=== PATIENT | male | born 1960 | race Caucasian/White ===

== ENCOUNTER → 2021-04-16 | Outpatient (REF) ==
--- NOTE | 2021-04-16 13:59 | REPPI ---
INDICATION: SHOULDER, BACK PAIN. COMPARISON: None. TECHNIQUE: Three views of the left shoulder were performed. FINDINGS: The acromioclavicular and glenohumeral relationships are within normal limits. There is no acute fracture or destructive osseous lesion. There is minimal humeral head marginal osteophyte formation seen inferiorly IMPRESSION: Slight degenerative change. <Electronically signed by Earnest Multani > 04/16/21 [id number]
--- NOTE | 2021-04-16 14:01 | REPPI ---
INDICATION: SHOULDER, BACK PAIN. COMPARISON: None. TECHNIQUE: Frontal, lateral, and lateral spot views are of the lumbar spine are provided. FINDINGS: The patient is status post lumbar laminectomy at L4 and L5. Transpedicle screws are in place bilaterally at L3, L4, L5, and S1. Interconnecting dorsal stabilization rods are seen bilaterally. A dual lead paraspinal neurostimulator is noted in place in the dorsal soft tissues at L3 and L4. There are metallic screws and disc fusion device is in place ventrally at the L4-5 and L5-S1 discs. Bridging osteophyte formation is seen ventrally at L3-4. Bone graft fusion density is seen the posterior elements at these levels. There is also degenerative disc disease at L2-3 and L1-2 with sclerosis and anterior discogenic spurring. Pedicles and posterior elements are otherwise intact. Sacrum and SI joints are intact. There is an anastomotic suture line in the left pelvis. Psoas margins are symmetric. The bowel gas pattern is unremarkable. IMPRESSION: Extensive posterior element and ventral lumbosacral spine fusion hardware as described above in detail above. Degenerative disc disease above the fused levels at L2-3 and L1-2. No acute bony abnormality. <Electronically signed by Good [facility] > 04/16/21 [id number]
== END ==
LOC: M PLAIMG 13:02
PROVIDERS: ATTEND Internal Medicine
DX: Z00.00 Encounter for general adult medical examination without abnormal findings (principal)

== ENCOUNTER → 2022-04-26 | Outpatient (CLI) ==
[~2022-04-26] MED LIST: ADME100I2; AMIO0.1T PO; CARV25TA PO; CLOP75TA2 PO; ELIQ5TAB PO; ENTR1TAB4 PO; GLIM4TAB5 PO; HYDR12CA; METF10004 PO; NOVO1INJ18 SQ; PANT40TA29 PO; POTA1TAB23; ROSU10TA6 PO; SPIR-10; TORS20TA2 PO; TRUL0.5I
== END ==
LOC: M LABSMTC 09:36
PROVIDERS: ATTEND Anesthesiology
DX: Z01.812 Encounter for preprocedural laboratory examination (principal)

== ENCOUNTER 2022-04-30 06:56 | Day surgery (SDC) | payer OTHER ==
[~2022-04-30] VITALS: Ht 185.4 cm; Wt 136.5 kg
[~2022-04-30 06:56] MED LIST changes: +MAXITROL OPHTH SUSP 5 ML As Ordered ONE; +TETRACAINE 0.5% OPHTH SOLN 4ML OS SCH
[2022-04-30] MEDS ORDERED: LR 1,000 ML IV SCH (07:00)
[2022-04-30] MEDS ORDERED: MIDAZOLAM INJ 2MG/2ML VIAL (J2250 PER 1MG) As Ordered ONE (07:16)
[2022-04-30] MEDS ORDERED: LIDOCAINE 1% SDV 5ML VIAL As Ordered ONE (07:20)
[2022-04-30] MEDS: FLURBIPROFEN 0.03% OPHTH SOLN 2.5 ML OS SCH ×3 (07:22→07:37)
[2022-04-30] MEDS: PHENYLEPHRINE 2.5% OPHTH SOL 2ML OS SCH ×3 (07:22→07:37)
[2022-04-30] MEDS: CYCLOPENTOLATE 1% OPHTH SOLN 2 ML BTL OS SCH ×3 (07:23→07:37)
[2022-04-30 09:35] VITALS: BP 161/76
== END 2022-04-30 10:10 | disposition home or self-care (01) ==
LOC: M SDC 06:56
PROVIDERS: ATTEND Ophthalmology
DX: H25.12 Age-related nuclear cataract, left eye (principal); I48.91 Unspecified atrial fibrillation; I11.9 Hypertensive heart disease without heart failure; E78.5 Hyperlipidemia, unspecified; M06.9 Rheumatoid arthritis, unspecified; I25.2 Old myocardial infarction; R06.02 Shortness of breath; M25.511 Pain in right shoulder; I73.9 Peripheral vascular disease, unspecified; E11.69 Type 2 diabetes mellitus with other specified complication; R80.9 Proteinuria, unspecified; E11.319 Type 2 diabetes mellitus with unspecified diabetic retinopathy without macular edema; E11.40 Type 2 diabetes mellitus with diabetic neuropathy, unspecified; Z87.891 Personal history of nicotine dependence; Z79.899 Other long term (current) drug therapy; Z79.84 Long term (current) use of oral hypoglycemic drugs; Z79.01 Long term (current) use of anticoagulants; Z79.02 Long term (current) use of antithrombotics/antiplatelets; Z79.4 Long term (current) use of insulin
CPT/HCPCS: 66984; J2250; V2632

== ENCOUNTER 2023-04-20 06:02 | Day surgery (SDC) | payer MEDICAID, MEDICARE ==
[~2023-04-20] VITALS: Ht 185.4 cm; Wt 136.1 kg
[~2023-04-20 06:02] MED LIST changes: -MAXITROL OPHTH SUSP 5 ML As Ordered ONE; +PROPARACAINE 0.5% OPHTH SOL 15ML OD ONE; -TETRACAINE 0.5% OPHTH SOLN 4ML OS SCH
[2023-04-20] MEDS ORDERED: LIDOCAINE 1% SDV 5ML VIAL As Ordered ONE (06:42)
[2023-04-20] MEDS ORDERED: CEFUROXIME 1MG/0.1ML INTRACAMERAL INJ As Ordered ONE (06:43)
[2023-04-20] MEDS ORDERED: BSS IRR 500ML/OMIDRIA 4ML IRR BAG (OR ONLY) As Ordered ONE (06:44)
[2023-04-20] MEDS: OFLOXACIN 0.3 % (OCUFLOX) OPTH SOL 5ML OD SCH ×3 (06:45→06:56)
[2023-04-20] MEDS: PHENYLEPHRINE 2.5% OPHTH SOL 2ML OD SCH ×3 (06:45→06:56)
[2023-04-20] MEDS: CYCLOPENTOLATE 1% OPHTH SOLN 2ML BTL OD SCH ×3 (06:45→06:56)
[2023-04-20] MEDS: TROPICAMIDE 1% OPHTH SOLN 15ML OD SCH ×3 (06:45→06:56)
[2023-04-20] MEDS ORDERED: MIDAZOLAM INJ 2MG/2ML VIAL As Ordered ONE (07:05)
[2023-04-20] MEDS ORDERED: fentaNYL 100 MCG/2 ML INJECTION As Ordered ONE (07:05)
[2023-04-20 08:25] VITALS: BP 131/74; TEMP 97; O2SAT 99
== END 2023-04-20 08:27 | disposition home or self-care (01) ==
LOC: M SDC 06:02
PROVIDERS: ATTEND Ophthalmology
DX: H25.11 Age-related nuclear cataract, right eye (principal); I10 Essential (primary) hypertension; I48.91 Unspecified atrial fibrillation; E11.9 Type 2 diabetes mellitus without complications; E78.5 Hyperlipidemia, unspecified; K21.9 Gastro-esophageal reflux disease without esophagitis; R60.9 Edema, unspecified; G47.33 Obstructive sleep apnea (adult) (pediatric); Z98.61 Coronary angioplasty status; Z79.01 Long term (current) use of anticoagulants; Z79.4 Long term (current) use of insulin; Z79.84 Long term (current) use of oral hypoglycemic drugs; Z79.899 Other long term (current) drug therapy
CPT/HCPCS: 66984; J0697; J1097; J2250; J3010; V2632